=== PATIENT | female | born 1965 | race Caucasian/White ===

== ENCOUNTER 2017-03-02 19:13 | Emergency (ER) | payer OTHER ==
[~2017-03-02] VITALS: Ht 170.2 cm; Wt 66.0 kg
[~2017-03-02 19:13] MED LIST: CALC600T10; LEVO.05 PO; LORTA5 PO; VALT500T PO
[2017-03-02 19:15] VITALS: BP 147/65; PULSE 85; TEMP 98.1; O2SAT 96
--- NOTE | 2017-03-02 20:02 | PD ---
HPI Chief Complaint: Psychiatric Symptoms Time Seen by Provider: 19:55 Travel History International Travel<30 days: No Contact w/Intl Traveler<30days: No Traveled to known affect area: No History of Present Illness HPI 51-year-old white female presents to emergency department requesting evaluation by a psychiatrist. She states that she feels overwhelmed and depressed. She states that she suffers from several chronic medical conditions. She has contemplated suicide but has no current plan. She denies any homicidal ideation. No toxic ingestions. She states that she was just seen at [facility] earlier today and was treated for dehydration. She had identified the fact that she was feeling depressed and suicidal but they advised her to seek out a psychiatrist. The patient states that they did laboratory testing including CBC, chemistry, CT scan of the abdomen. She states that she had been nauseous and vomiting 2 days earlier. She states that she's had a decreased oral intake. She had stopped her antibiotics 3 weeks ago that was she was taking for chronic Lyme's disease. Fibromyalgia, She also states that she takes thyroid replacement due to a thyroidectomy from papillary carcinoma. Patient states that she has chronic bone and muscle pain. Patient currently denies any fever or chills. No vomiting today. No chest pain or shortness of breath. She states that she has chronic abdominal pain and chronic constipation. She normally stools every 3 weeks. She had a bowel movement earlier today. She denies any focal weakness. Positive chronic pain all over her body but is more so on her head, bones of her legs and feet. 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, fibromyalgia, chronic pain syndrome, chronic constipation, Lyme' s disease, ovarian cysts Asthma: Yes Anxiety: Yes (PT GETS PANIC ATTACKS) Depression: Yes Cancer: No Cardiovascular Problems: Yes (PALPITATIONS) Diabetes: No Diminished Hearing: No Endocrine: No Genitourinary: No Hepatitis: No Hiatal Hernia: No Immune Disorder: Yes (FIBROMYALGIA, CHRONIC FATIGUE SYNDROME) Musculoskeletal: No Neurologic: Yes (INTERMITTENT WEAKNESS, LEASON ON BRAIN) Psychiatric: Yes (HX DEPRESSION,ANXIETY, RECENT PANIC ATTACKS) Reproductive: Yes (ABNORMAL PAP SMEAR, ABNORMAL POST MENOPAUSAL BLEEDING) Respiratory: Yes (HX OF ASTHMA) Immunizations Current: Yes Thyroid Disease: No Tetanus Vaccination: < 5 Years : 3 Para: 2 Miscarriage: 1 Past Surgical History Narrative Surgical Right bunionectomy, laparoscopy for ovarian cysts Abdominal Surgery: Yes (UMBILICAL CYST REMOVED) Body Medical Devices: R GREAT TOE WITH JOSE AND 2 SCREWS Gynecologic Surgery: Yes (LEEP PROCEURE) Joint Replacement: No Social History Alcohol Use: No Tobacco Use: No Substance Use: No Allergies-Medications (Allergen,Severity, Reaction): Coded Allergies: No Known Allergies (Verified , 03/02/17) Reported Meds & Prescriptions Reported Meds & Active Scripts Active Review of Systems Except as stated in HPI: all other systems reviewed are Neg Physical Exam Narrative GENERAL: Well-nourished, well-developed patient. Flat affect. SKIN: Warm and dry. HEAD: Normocephalic and atraumatic. EYES: No scleral icterus. No injection or drainage. ENT: No nasal drainage noted. Mucous membranes pink. Airway patent. NECK: Supple, trachea midline. Moves head freely without obvious discomfort. CARDIOVASCULAR: Regular rate and rhythm without murmurs, gallops, or rubs. RESPIRATORY: Breath sounds equal bilaterally. No accessory muscle use. GASTROINTESTINAL: Abdomen soft, non-tender, nondistended. EXTREMITIES: No cyanosis or edema. BACK: Nontender without obvious deformity. No CVA tenderness. NEURO: Patient is alert and oriented. no sensorimotor deficits. Nonfocal. Normal speech. PSYCH: No delusions. No auditory or visual hallucinations. Data Data Last Documented VS Vital Signs Date Time Temp Pulse Resp B/P Pulse Ox O2 Delivery O2 Flow Rate FiO2 03/02/17 19:15 98.1 85 147/65 96 Room Air Orders Complete Blood Count With Diff (03/02/17 19:54) Comprehensive Metabolic Panel (03/02/17 19:54) Thyroid Stimulating Hormone (03/02/17 19:54) Psych Screen (03/02/17 19:54) Drug Screen, Random Urine (03/02/17 19:54) Alcohol (Ethanol) (03/02/17 19:54) Salicylates (Aspirin) (03/02/17 19:54) Tylenol (Acetaminophen) (03/02/17 19:54) Labs Laboratory Tests Test 03/02/17 20:25 White Blood Count 4.0 TH/MM3 Red Blood Count 4.11 MIL/MM3 Hemoglobin 13.1 GM/DL Hematocrit 37.8 % Mean Corpuscular Volume 91.9 FL Mean Corpuscular Hemoglobin 31.8 PG Mean Corpuscular Hemoglobin 34.6 % Concent Red Cell Distribution Width 12.4 % Platelet Count 296 TH/MM3 Mean Platelet Volume 6.4 FL Neutrophils (%) (Auto) 46.1 % Lymphocytes (%) (Auto) 43.8 % Monocytes (%) (Auto) 8.8 % Eosinophils (%) (Auto) 0.8 % Basophils (%) (Auto) 0.5 % Neutrophils # (Auto) 1.8 TH/MM3 Lymphocytes # (Auto) 1.7 TH/MM3 Monocytes # (Auto) 0.3 TH/MM3 Eosinophils # (Auto) 0.0 TH/MM3 Basophils # (Auto) 0.0 TH/MM3 CBC Comment DIFF FINAL Differential Comment Sodium Level 142 MEQ/L Potassium Level 3.9 MEQ/L Chloride Level 108 MEQ/L Carbon Dioxide Level 27.0 MEQ/L Anion Gap 7 MEQ/L Blood Urea Nitrogen 9 MG/DL Creatinine 1.05 MG/DL Estimat Glomerular Filtration 55 ML/MIN Rate Random Glucose 106 MG/DL Calcium Level 8.7 MG/DL Total Bilirubin 3.0 MG/DL Aspartate Amino Transf 15 U/L (AST/SGOT) Alanine Aminotransferase 17 U/L (ALT/SGPT) Alkaline Phosphatase 73 U/L Total Protein 6.5 GM/DL Albumin 3.6 GM/DL Thyroid Stimulating Hormone 0.085 uIU/ML 3rd Gen Salicylates Level LESS THAN 1.7 MG/DL Urine Opiates Screen POS Acetaminophen Level LESS THAN 2.0 MCG/ML Urine Barbiturates Screen NEG Urine Amphetamines Screen NEG Urine Benzodiazepines Screen NEG Urine Cocaine Screen NEG Urine Cannabinoids Screen NEG Ethyl Alcohol Level LESS THAN 3 MG/DL MDM Medical Decision Making Medical Screen Exam Complete: Yes Emergency Medical Condition: Yes Medical Record Reviewed: Yes Interpretation(s) Laboratory Tests Test 03/02/17 20:25 White Blood Count 4.0 TH/MM3 Red Blood Count 4.11 MIL/MM3 Hemoglobin 13.1 GM/DL Hematocrit 37.8 % Mean Corpuscular Volume 91.9 FL Mean Corpuscular Hemoglobin 31.8 PG Mean Corpuscular Hemoglobin 34.6 % Concent Red Cell Distribution Width 12.4 % Platelet Count 296 TH/MM3 Mean Platelet Volume 6.4 FL Neutrophils (%) (Auto) 46.1 % Lymphocytes (%) (Auto) 43.8 % Monocytes (%) (Auto) 8.8 % Eosinophils (%) (Auto) 0.8 % Basophils (%) (Auto) 0.5 % Neutrophils # (Auto) 1.8 TH/MM3 Lymphocytes # (Auto) 1.7 TH/MM3 Monocytes # (Auto) 0.3 TH/MM3 Eosinophils # (Auto) 0.0 TH/MM3 Basophils # (Auto) 0.0 TH/MM3 CBC Comment DIFF FINAL Differential Comment Sodium Level 142 MEQ/L Potassium Level 3.9 MEQ/L Chloride Level 108 MEQ/L Carbon Dioxide Level 27.0 MEQ/L Anion Gap 7 MEQ/L Blood Urea Nitrogen 9 MG/DL Creatinine 1.05 MG/DL Estimat Glomerular Filtration 55 ML/MIN Rate Random Glucose 106 MG/DL Calcium Level 8.7 MG/DL Total Bilirubin 3.0 MG/DL Aspartate Amino Transf 15 U/L (AST/SGOT) Alanine Aminotransferase 17 U/L (ALT/SGPT) Alkaline Phosphatase 73 U/L Total Protein 6.5 GM/DL Albumin 3.6 GM/DL Thyroid Stimulating Hormone 0.085 uIU/ML 3rd Gen Salicylates Level LESS THAN 1.7 MG/DL Urine Opiates Screen POS Acetaminophen Level LESS THAN 2.0 MCG/ML Urine Barbiturates Screen NEG Urine Amphetamines Screen NEG Urine Benzodiazepines Screen NEG Urine Cocaine Screen NEG Urine Cannabinoids Screen NEG Ethyl Alcohol Level LESS THAN 3 MG/DL Differential Diagnosis MDM: High Differential diagnoses: Schizophrenia, schizoaffective disorder, bipolar, anxiety, depression, adjustment reaction, mood disorder NOS, ODD, depressive disorder NOS, dementia, dementia with agitation, psychosis NOS, substance induced mood disorder, intermittent explosive disorder, Asperger syndrome, infection,electrolyte abnormality, malingering. Narrative Course Mental health screening discussed with the patient. Psychiatric screen ordered. The patient has been medically cleared. This is medical clearance for psychiatric admission, chronic pain syndrome, depression Diagnosis Primary Impression: Medical clearance for psychiatric admission Additional Impressions: Chronic pain syndrome depression Condition: Stable Blair Richardson Mar 02, 2017 20:02
[2017-03-02 20:43] LABS: AUTOMATED NEUTROPHIL # 1.8 TH/MM3 (1.8-7.7); BASOPHIL % 0.5 % (0.0-2.0); EOSINOPHIL % 0.8 % (0.0-4.0); HEMATOCRIT 37.8 % (35.0-46.0); HEMO FLAGS DIFF FINAL; LYMPH % 43.8 % (9.0-44.0); LYMPHOCYTE # 1.7 TH/MM3 (1.0-4.8); MEAN CELL VOLUME 91.9 FL (80.0-100.0); MEAN CORPUSCULAR HEMOGLOBIN 31.8 PG (27.0-34.0); MEAN CORPUSCULAR HGB CONC 34.6 % (32.0-36.0); MONO % 8.8 % (0.0-8.0); NEUT % 46.1 % (16.0-70.0); PLATELET COUNT 296 TH/MM3 (150-450); RED BLOOD COUNT 4.11 MIL/MM3 (4.00-5.30); RED CELL DISTRIBUTION WIDTH 12.4 % (11.6-17.2)
[2017-03-02 20:48] LABS: AMPHETAMINE, URINE NEG (NEG); BARBITURATES, URINE NEG (NEG); COCAINE, URINE NEG (NEG)
[2017-03-02 20:53] LABS: ANION GAP 7 MEQ/L (5-15); AST (GOT) 15 U/L (15-37); BLOOD UREA NITROGEN 9 MG/DL (7-18); CHLORIDE 108 MEQ/L (98-107); GLOMERULAR FILTRATION RATE 55 ML/MIN (>89); POTASSIUM 3.9 MEQ/L (3.5-5.1); SODIUM (NA) 142 MEQ/L (136-145)
[2017-03-02 20:54] LABS: ALT (GPT) 17 U/L (10-53)
[2017-03-02 21:04] LABS: ALKALINE PHOSPHATASE 73 U/L (45-117)
[2017-03-02 21:08] LABS: ACETAMINOPHEN LESS THAN 2.0 MCG/ML (10.0-30.0)
[2017-03-02] MEDS ORDERED: LEVO.05 PO (21:18)
[2017-03-02] MEDS ORDERED: OXYC-395 PO (21:18)
[2017-03-02] MEDS ORDERED: OXYC-404 PO (23:49)
[2017-03-02] MEDS ORDERED: NP T30TA PO (23:53)
[2017-03-02] MEDS ORDERED: NATU97.5 PO (23:53)
[2017-03-02] MEDS ORDERED: ALPR0.25 PO (23:53)
[2017-03-02] MEDS ORDERED: NP T60TA PO (23:53)
[2017-03-03 06:18] VITALS: BP 94/48; PULSE 58; RESP 18; O2SAT 99
[2017-03-03] MEDS ORDERED: THYROID 30 MG TAB PO ONE (10:15)
[2017-03-03] MEDS ORDERED: THYROID 60 MG TAB PO ONE (10:15)
[2017-03-03 10:20] VITALS: BP 143/68; PULSE 64; RESP 18; TEMP 98.2; O2SAT 99
[2017-03-03 13:47] VITALS: BP 143/68
== END 2017-03-03 14:05 | disposition home or self-care (01) ==
LOC: NEPD 19:13 → NEPJ 03-03 14:05
DX: F41.8 Other specified anxiety disorders (principal); G89.4 Chronic pain syndrome; F41.0 Panic disorder [episodic paroxysmal anxiety]; R00.2 Palpitations
CPT/HCPCS: 80053; 80307; 84443; 85025; 99283